=== PATIENT | female | born 1945 | race Caucasian/White ===

== ENCOUNTER → 2018-06-13 16:13 | Outpatient (CLI) | payer MEDICARE, OTHER, SELFPAY ==
--- NOTE | 2018-06-13 16:15 | DI.RAD.S_ITS ---
PROCEDURE: XR CHEST 2V INDICATIONS: cough TECHNIQUE: 2 views of the chest were acquired. COMPARISON: None. FINDINGS: Surgical changes and devices: None. Lungs and pleura: No pleural effusions or pneumothorax. There is prominence of the bilateral pulmonary vasculature. There is a 1.3 cm nodular opacity at the left lung base. Mediastinum: Mediastinal contours are normal. Heart size is normal. Bones and chest wall: No suspicious bony abnormalities. Soft tissues appear unremarkable. IMPRESSION: 1.3 cm nonspecific nodular opacity at the left lung base, with differential considerations including atelectasis, infection, or an irregular pulmonary nodule. Consider followup PA and lateral chest radiographs after the current clinical episode to ensure resolution. Dictated by: Reyes Nash M.D. on 06/13/2018 at 20:57 Approved by: Reyes Nash M.D. on 06/13/2018 at 21:02
== END ==
PROVIDERS: Visit Provider Physician Assistant
DX: R05 Cough (principal)
CPT/HCPCS: 71046

== ENCOUNTER → 2019-12-08 14:35 | Outpatient (CLI) | payer MEDICARE, OTHER, SELFPAY ==
--- NOTE | 2019-12-08 | DI.RAD.S_ITS ---
PROCEDURE: XR FOOT RT MIN 3V INDICATIONS: right foot pain after fall TECHNIQUE: 3 views of the foot were acquired. COMPARISON: None. FINDINGS: Bones: No fractures or dislocations. No suspicious bony lesions. Soft tissues: No tibiotalar joint effusion. Achilles tendon appears normal. IMPRESSION: No trauma found. Dictated by: Benedicto Smith M.D. on 12/08/2019 at 16:02 Approved by: Benedicto Smith M.D. on 12/08/2019 at 16:08
== END ==
PROVIDERS: PCP Internal Medicine; Referring Provider Student in an Organized Health Care Education/Training Program; Visit Provider Student in an Organized Health Care Education/Training Program
DX: M79.671 Pain in right foot (principal); W19.XXXA Unspecified fall, initial encounter
CPT/HCPCS: 73630

== ENCOUNTER → 2020-04-10 13:18 | Outpatient (CLI) | payer MEDICARE, OTHER, SELFPAY ==
[2020-04-11 10:27] LABS: COVID19 Sendout Not Detected (Not Detect)
== END ==
PROVIDERS: PCP Internal Medicine; Visit Provider Physician Assistant
DX: Z11.59 Encounter for screening for other viral diseases (principal)
CPT/HCPCS: 87635

== ENCOUNTER → 2020-09-08 18:57 | Outpatient (ROUT) | payer OTHER, SELFPAY | PROVIDERS: PCP Internal Medicine; Visit Provider Internal Medicine | DX: N39.0 Urinary tract infection, site not specified (principal) | CPT/HCPCS: 87077; 87086; 87186 ==

== ENCOUNTER → 2021-05-08 09:13 | Outpatient (CLI) | payer OTHER, SELFPAY ==
--- NOTE | 2021-05-08 | DI.US.S_ITS ---
PROCEDURE: US PELVIC COMPLETE INDICATIONS: 75-year-old female with postmenopausal bleeding TECHNIQUE: Real-time scanning was performed of the pelvic organs, with image documentation. Additional endovaginal scanning was necessary due to incomplete visualization of the adnexal and endometrial structures by transabdominal scanning. COMPARISON: None. FINDINGS: Uterus: Uterus is normal in size at 5.3 x 3.0 x 4.3 cm. The endometrium measures 15 mm in combined thickness. Myometrium is homogeneous, and the uterus is anteverted Ovaries: Right left ovaries measure 5.4 x 3.5 x 5.2 cm and 4.4 x 4.6 x 4.9 cm respectively. There is a multiloculated 4.9 x 4.2 cm cyst on the right as well as a 5.7 x 4.0 cm simple cyst on the left. Normal ovarian vascularity noted. Other: No pathologic free abdominal or pelvic fluid. IMPRESSION: 1. Thickened endometrium measures 15 mm. Recommend endometrial biopsy. 2. Multiloculated right ovarian cyst. Consider surgical consult. 3. Left ovarian 5.7 cm simple cyst Approved by: Satya Dhillon M.D. on 05/08/2021 at 10:50
== END ==
PROVIDERS: PCP Internal Medicine; Referring Provider Internal Medicine; Visit Provider Student in an Organized Health Care Education/Training Program
DX: N95.0 Postmenopausal bleeding (principal); R93.89 Abnormal findings on diagnostic imaging of other specified body structures; D39.11 Neoplasm of uncertain behavior of right ovary; N83.292 Other ovarian cyst, left side
CPT/HCPCS: 76830; 76856

== ENCOUNTER → 2021-05-29 15:03 | Outpatient (CLI) | payer OTHER, SELFPAY ==
[2021-05-29 16:28] LABS: Cancer Antigen 125 10.3 U/mL (0-35)
[2021-05-29 16:29] LABS: Estradiol, Total 20.9 pg/mL
[2021-05-31 11:13] LABS: Human Epididymis Prot 4 60.6 pmol/L (0.0-96.9)
== END ==
PROVIDERS: PCP Internal Medicine; Referring Provider Specialist; Visit Provider Specialist
DX: N83.202 Unspecified ovarian cyst, left side (principal); N83.201 Unspecified ovarian cyst, right side; R93.89 Abnormal findings on diagnostic imaging of other specified body structures
CPT/HCPCS: 36415; 82670; 86304; 86305

== ENCOUNTER → 2021-07-19 09:38 | Outpatient (CLI) | payer OTHER, SELFPAY ==
[2021-07-19 10:20] LABS: COVID19 -Nasal RAPID Negative (Negative)
== END ==
PROVIDERS: PCP Internal Medicine; Referring Provider Specialist; Visit Provider Specialist
DX: Z01.812 Encounter for preprocedural laboratory examination (principal); Z20.822 Contact with and (suspected) exposure to COVID-19
CPT/HCPCS: 87635

== ENCOUNTER 2021-07-20 08:41 | Day surgery (SDC) | payer OTHER, SELFPAY ==
[2021-07-19 08:33] VITALS: BMI 28.5
[2021-07-20] VITALS (19 sets, daily range): BP systolic 105–143; BP diastolic 55–79; PULSE 62–79; RESP 8–16; TEMP 36.4–37.2; O2SAT 90–98; BMI 28.5
--- NOTE | 2021-07-20 | PATH_ITS ---
Note [facility] Accession Number: [id number] TESTS RESULT FLAG UNITS REF RANGE LAB Clinician Provided Cytology Information No. of containers..01 Other (Miscellaneous) Source: PELVIC WASHINGS DIAGNOSIS: PELVIC WASHINGS NEGATIVE FOR MALIGNANT CELLS. THIS INTERPRETATION INCLUDES EVALUATION OF A CELL BLOCK. Pathologist ICD10: 01 N85.9 Signed out by: Elise Soni MD, Pathologist NPI- [id number] Performed by: Abiodun Joseph, Instructional Support Technician ([facility]) Gross description: 25 CC, PINK, HAZY RECEIVED: FRESH IN ORANGE CAP CONTAINER. /VDU 07/23/2021 0949 Local FLAG LEGEND: L-Low Normal,H-High Normal,LL-Alert Low,HH-Alert High <-Panic Low,>-Panic High,A-Abnormal,AA-Critical Abnormal Performed at: 01 =Z [facility] [address], [place] [address] Jalil Zarco MD, Performed at: 01 [facility] [address], [place], [place] [id number] MD Jalil Zarco MD Phone: [phone]
[2021-07-20] MEDS: LACTATED RINGERS 1,000 ML 100 ML IV ×2 (09:00→12:26)
--- NOTE | 2021-07-20 09:14 | PM.PREOP ---
Pre-operative Note COVID-19 COVID-19 status: Negative Result date/Date tested (Pos, Neg/Pending): 07/19/21 Criteria for continued procedure: Delay expected to result in less-positive ultimate med/surg outcome Interval Note History & Physical reviewed/Exam performed by Physician: Yes Changes to H&P: No
--- NOTE | 2021-07-20 11:32 | SUR.OPER ---
Lithotomy on padded OR bed, head on pillow, arms secured on padded arm boards at <90 degrees abduction. Legs secured in padded yellow fins stirrups.
[2021-07-20] MEDS: BUPIVACAINE 0.5% (PF) 30 ML, EPINEPHrine 0.15 MG INJ (12:10)
--- NOTE | 2021-07-20 12:45 | P.OP_ITS ---
Operative Date/Time/Diagnoses Date of procedure: 07/20/21 Time of procedure: 12:45 Pre-op diagnosis: Postmenopausal bleeding and bilateral ovarian cysts Post-op diagnosis: same Procedure & Clinicians Procedure: Laparoscopic BSO, hysteroscopy with resection of intracavitary mass and curettage Same procedure as scheduled: Yes Indications: Postmenopausal bleeding with thickened endometrium on ultrasound and bilateral ovarian cysts Surgeon: Cayla Anderson Click Yes if Unassisted: Yes Anesthesia Type: General Operative Notes Findings: Bilateral ovarian cysts with normal appearing tubes and uterus. Normal bowel surface. Some mild adhesions between the descending colon and the left ovarian cyst. Normal liver edge. Intracavitary uterine mass that appears to be a fibroid, resected Closure Type: primary Specimen(s): other (Bilateral ovaries and fallopian tubes, uterine intracavitary mass, endometrial curettage) Estimated Blood Loss (mL): 30 Blood products transfused: none Procedure in detail: Patient was brought to the operating room where she underwent general anesthesia. She was placed in low [facility] stirrups and prepped and draped in usual sterile fashion. Pulsatile stockings were in place and functional. Warming was with Viky Hugger. A single-tooth tenaculum was placed on the anterior lip of the cervix and the cervix dilated to #6 Hegar dilator. The Zumi uterine manipulator was placed and balloon inflated with 3 mL of air. The area of the incisions were injected with half percent Marcaine with epinephrine. An incision was made in the umbilicus with a scalpel and the Verres needle placed in the abdomen. Confirmation of correct placement of the needle was performed by withdrawing on the syringe and then allowing fluid to fall freely through the needle. The abdomen was insufflated to 4 L of CO2. A 5 mm trocar was placed under direct visualization. 2 other 5 mm trochars were placed in the right and left lower quadrant under direct visualization after incising the skin. There did not appear to be any damage with placement of the trocars. Cell washings were performed and sent to pathology. right fallopian tube was grasped and the infundibulopelvic ligament was cauterized with the PK generator. Sequential bites along the broad ligament were cauterized and cut. The fallopian tube at the junction with the uterus and the utero-ovarian ligament was cauterized and cut with the PK generator. Same procedure was performed on the left fallopian tube and ovary. A 10 mm trocar was placed suprapubically after injecting the skin with Marcaine with epi. An Endo-Catch bag was placed and the ovaries and tubes were placed in the bag. Ovaries and tubes were brought up out of the abdomen without spillage. Adequate hemostasis was noted. The CO2 was allowed to escape from the abdomen. The fascial layer of the 10 mm trocar site was sutured with 0 Vicryl suture. trochars were removed. Skin was closed with 4-0 monocryl. Next the procedure was switched to vaginal. A single-tooth tenaculum was replaced on the anterior lip of the cervix and the uterus dilated to #8 Hegar dilator. The hysteroscope was placed into the uterus with a sorbitol solution running and under constant suction. The resecting loop set at 80 W of cutting was used to resect the fibroid down to the level of the endometrium. A endometrial curettage was performed. The fibroid and the endometrial curettage was sent to pathology. The single-tooth tenaculum had torn through the cervix and the cervix was bleeding so an 0 Vicryl suture was used to repair the defect with adequate hemostasis noted. Patient went to recovery room in good condition counts of instruments and sponges were correct. The sorbitol solution I=O approximately 3000 mL. Complications: none Post-operative Condition: stable Disposition: same day surgery Plan for aftercare: Home when awake and stable. Further treatment based on biopsy results.
[2021-07-20] MEDS: fentaNYL 100 MCG/2 ML INJ IV (13:11)
[2021-07-20] MEDS: ACETAMINOPHEN 325 MG TABLET 650 MG PO (14:26)
[2021-07-20] MEDS: OXYCODONE IR 5 MG TABLET PO (14:28)
--- NOTE | 2021-07-20 14:30 | SUR.PHASEII ---
Addendum entered by Lyndsay Wilde R.N. 07/20/21 16:43: 1600-more awake and alert.still residual tired / sleepiness feeling but states feels better now. Taking cranberry juice and chocolate pudding. pain down to 3/10 and states tolerable. Home care instructions reviewed with patient. Copies to envelope for discharge. Questions answered. recalled/updated. Here in parking lot waiting. 1615-Up sitting bedside. Feels ready to progress to home. Dressing self. Assisted as needed with pants/shoes/socks. Sats improved and off oxygen after 1 hr+. 1625-Refused restroom. ? incontinence in bed from earlier noted. scant increase to peripad drainage noted-new one placed for discharge. 4 abdominal lap sites cdi. abdomen soft. 1630-IV out. ambulated around unit, gait generally steady with standby assist. denies nausea. 1635-Discharged by wheel chair with all belongings,paperwork and incentive spirometer. Able to reach 2, ooo ml if stays between lines on side of spirometer, if not can reach 4,ooo. good strong cough heard. stressed importance of using for next few days every 1-2 hours while awake, 10 /hr repetitions. Patient verbalizes understanding. Spoke with at car side, given information on spirometery, her instructions with times of next pain pills due if needed. Encouraged to escort patient in to house and may be sleepy tonight. Addendum entered by Lyndsay Wilde R.N. 07/20/21 14:42: 1440-resumed oxygen at 2l n c. sats 88%, enc to deep breathe, sats up to 92%. Dozing again. called and updated-aware eta could be another hour or so. Will call again when ready. Addendum entered by Lyndsay Wilde R.N. 07/20/21 14:37: 1430-continuous sat monitor on . oxygen off. on room air. continue to observe . Original Note: 07/20/2166-1830-Menusvyu report and assumed care of patient. groggy. c/o abdomen discomfort-5/10-cramping . oriented x 3. iv patent. abdomen soft with 4 large bandaids cdi. peripad intact with small amt bloody drainage. 1430-Dr Rene at bedside to see patient. po tylenol/oxycodone given. vss.
--- NOTE | 2021-07-20 15:07 | SUR.PHASEII ---
Pt given incentive spirometer and had her take deep breaths. Pt got up to 1000. Had her do this 5 times.
== END 2021-07-20 16:35 | disposition home or self-care (01) ==
LOC: OR 08:43
PROVIDERS: PCP Internal Medicine; Referring Provider Specialist; Visit Provider Specialist
PROC: 0UT24ZZ Resection of Bilateral Ovaries, Percutaneous Endoscopic Approach (ICD-10-PCS; CPT 58661; principal; 2021-07-20 09:45)
PROC: 0UDB8ZZ Extraction of Endometrium, Via Natural or Artificial Opening Endoscopic (ICD-10-PCS; CPT 58558; 2021-07-20 09:45)
DX: N85.9 Noninflammatory disorder of uterus, unspecified (principal); N83.202 Unspecified ovarian cyst, left side; N83.201 Unspecified ovarian cyst, right side; I10 Essential (primary) hypertension
CPT/HCPCS: 58661; 58561; J0171; J1100; J1885; J2405; J2704; J3010

== ENCOUNTER → 2021-11-07 10:24 | Outpatient (CLI) | payer OTHER, SELFPAY | PROVIDERS: PCP Internal Medicine; Visit Provider Nurse Practitioner Family | DX: N39.0 Urinary tract infection, site not specified (principal) | CPT/HCPCS: 87086 ==

== ENCOUNTER 2021-11-07 11:34 | Emergency (ER) | payer OTHER, SELFPAY ==
[2021-11-07 12:00] VITALS: BP 140/83; PULSE 69; RESP 18; TEMP 37.7; O2SAT 99
--- NOTE | 2021-11-07 12:24 | ED.FEMALEGU ---
HPI - Female Genitourinary <UDAY Carter - Last Filed: 11/07/21 14:21> General Chief complaint: Abdominal Pain Stated complaint: Abd pain- sent by [facility] Time Seen by Provider: 11/07/21 12:08 Source: patient Mode of arrival: Family Vehicle History of Present Illness HPI Narrative: This is a 76-year-old female who presents the emergency department after being sent over from the walk-in clinic for urinary frequency, dysuria, fever, and pelvic pressure for 3 days. Patient states that her pain is localized to her groin, she denies any abnormal vaginal discharge, she has a history of a bilateral oophorectomy and is currently on hormone replacement therapy. Patient denies any vaginal itching, denies any flank pain, states she has been more fatigued than usual, drinking a lot of water, and taking frequent naps. She states she took Aleve this morning at 1000 hours and is feeling better. Patient states she had diarrhea episode yesterday, denies any vomiting, denies any weakness or feeling faint. She denies any chest pain or shortness of breath. Patient denies having a history of UTIs in the past. On chart review it appears that patient had a positive urine culture for E coli on 09/08/2020 which was susceptible to all antibiotics. Patient denies having a racing heart, shortness of breath, or having pain out of proportion. Her primary care provider is Dr. Casanova, and Dr. Anderson performed her bilateral oophorectomy. Related Data Home Medications Medication Instructions Recorded Confirmed atenolol 25 mg tablet 25 mg PO QDAY #0 10/13/10 11/07/21 paroxetine HCl 10 mg tablet (Paxil) 10 mg PO Q DAY #0 10/13/10 11/07/21 Previous Rx's Medication Instructions Recorded estradiol-norethindrone acet 0.5 1 tab PO Q DAY #84 tab 09/07/21 mg-0.1 mg tablet cephalexin 500 mg capsule 500 mg PO BID 5 Days #10 cap 11/07/21 phenazopyridine 100 mg tablet 100 mg PO TID PRN #7 tab 11/07/21 (Pyridium) Allergies Allergy/AdvReac Type Severity Reaction Status Date / Time No Known Drug Allergies Allergy Verified 11/07/21 11:59 Review of Systems <UDAY Carter - Last Filed: 11/07/21 14:21> Review of Systems Narrative: General: endorses fever, chills and fatigue, denies weakness or lightheaded ness Head/Neck: denies headache, neck pain, dizziness Eyes: denies visual changes, eye pain Cardio: denies chest pain, palpitations, edema Respiratory: denies dyspnea, cough, orthopnea GI: denies abdominal pain, nausea, vomiting, or diarrhea, endorses pelvic pain and pressure sensation : endorses having dysuria and urgency without urinary retention, hematuria, frequency or incontinence MSK: denies joint pain, muscle weakness Skin: denies rash, itching, skin lesions or other Neuro: denies numbness, tingling Patient History <UDAY Carter - Last Filed: 11/07/21 14:21> Medical History Anxiety FH: breast cancer in first degree relative HTN (hypertension) Surgical History H/O bilateral breast reduction surgery Substance Use Type: does not use Exam <UDAY Carter - Last Filed: 11/07/21 14:21> Narrative Exam Narrative: Independently reviewed vitals signs and nursing notes. General: cooperative, comfortable, in no acute distress, well developed and well groomed, skin is flushed Head: atraumatic, symmetrical facial expressions, flushed cheeks, no diaphoresis Neck: supple, atraumatic, without lymphadenopathy. Eyes: pupils equal round and reactive, EOMI, conjunctiva normal Nose: nares patent, no rhinorrhea Mouth/Throat: uvula midline, moist mucus membranes Cardiovascular: regular rate and rhythm, no peripheral edema, warm extremities Respiratory: normal effort, able to speak in complete sentences, no audible wheezing, stridor, or rales. No retractions or tachypnea. GI: abdomen soft, nontender to palpation, nondistended, no masses, no exquisite tenderness with exam, without guarding or rebound. no CVA tenderness bilaterally MSK: moves all extremities, ambulatory w/steady gait, neurovascularly intact, no weakness Skin: brisk capillary refill, no rash, no erythema Neuro: normal speech and cognition, A&O x3, normal tone Psych: mental status is grossly normal, congruent mood, normal affect, pleasant and cooperative Initial Vital Signs Initial Vital Signs: Vital Signs Temperature 99.8 F H 11/07/21 12:00 Pulse Rate 69 11/07/21 12:00 Respiratory Rate 18 11/07/21 12:00 Blood Pressure 140/83 11/07/21 12:00 Pulse Oximetry 99 11/07/21 12:00 <Swathi Owen DO - Last Filed: 11/08/21 08:27> Initial Vital Signs Initial Vital Signs: Vital Signs Temperature 99.8 F H 11/07/21 12:00 Pulse Rate 69 11/07/21 12:00 Respiratory Rate 18 11/07/21 12:00 Blood Pressure 140/83 11/07/21 12:00 Pulse Oximetry 99 11/07/21 12:00 Course <ALMAS CarterP - Last Filed: 11/07/21 14:21> Orders Ordered: Discontinued Medications Acetaminophen (Acetaminophen 325 Mg Tablet) 975 mg PO NOW ONE Stop: 11/07/21 12:26 Last Admin: 11/07/21 12:38 Dose: 975 mg Documented by: [email or web address] Cephalexin HCl (Cephalexin 250 Mg Capsule) 500 mg PO NOW ONE Stop: 11/07/21 12:26 Last Admin: 11/07/21 12:39 Dose: 500 mg Documented by: VICTOR HUGO Phenazopyridine HCl (Phenazopyridine 100 Mg Tablet) 100 mg PO NOW ONE Stop: 11/07/21 12:26 Last Admin: 11/07/21 12:39 Dose: 100 mg Documented by: VICTOR HUGO Vital Signs Vital signs: Vital Signs - 8 hr 11/07/21 12:00 Temperature 99.8 F H Pulse Rate 69 Respiratory Rate 18 Blood Pressure 140/83 Pulse Oximetry 99 <Swathi Owen DO - Last Filed: 11/08/21 08:27> Orders Ordered: Discontinued Medications Acetaminophen (Acetaminophen 325 Mg Tablet) 975 mg PO NOW ONE Stop: 11/07/21 12:26 Last Admin: 11/07/21 12:38 Dose: 975 mg Documented by: FRANCISCOTE Cephalexin HCl (Cephalexin 250 Mg Capsule) 500 mg PO NOW ONE Stop: 11/07/21 12:26 Last Admin: 11/07/21 12:39 Dose: 500 mg Documented by: VICTOR HUGO Phenazopyridine HCl (Phenazopyridine 100 Mg Tablet) 100 mg PO NOW ONE Stop: 11/07/21 12:26 Last Admin: 11/07/21 12:39 Dose: 100 mg Documented by: VICTOR HUGO Vital Signs Vital signs: Vital Signs - 8 hr 11/07/21 12:00 Temperature 99.8 F H Pulse Rate 69 Respiratory Rate 18 Blood Pressure 140/83 Pulse Oximetry 99 MDM - Female Genitourinary <UDAY Carter - Last Filed: 11/07/21 14:21> Lab Data Result diagrams: 11/07/21 12:40 11/07/21 12:40 Labs: Lab Results 11/07/21 11/07/21 Range/Units 12:40 12:40 WBC 10.1 (4.5-11.0) X10^3/uL RBC 5.01 (4.0-5.2) X10^6/uL Hgb 13.8 (12.0-16.0) g/dL Hct 41.0 (36-46) % MCV 82.0 (80-100) fL MCH 27.5 (26-34) PG MCHC 33.6 (30-36) % RDW 15.0 H (11.6-14.8) % Plt Count 203 (150-400) X10^3/uL Neut % (Auto) 74.9 (50-75) % Lymph % (Auto) 15.9 L (25-40) % [place] % (Auto) 6.7 (3-14) % Eos % (Auto) 2.1 (2-4) % Baso % (Auto) 0.4 (0-2) % Neut # (Auto) 7600 H (8507-2186) /uL Lymph # (Auto) 1600 (5835-2680) /uL [place] # (Auto) 700 (0-900) /uL Eos # (Auto) 200 (0-450) /uL Baso # (Auto) 0 (0-100) /uL Sodium 137 (137-145) mmol/L Potassium 4.2 (3.4-5.1) mmol/L Chloride 106 (98-107) mmol/L Carbon Dioxide 26 (22-32) mmol/L BUN 11 (7-17) mg/dL Creatinine 0.73 (0.52-1.04) mg/dL Estimated GFR > 60 (>60) mL/min BUN/Creatinine Ratio 15.1 (6-22) Glucose 96 (80-110) mg/dL Calcium 9.2 (8.4-10.2) mg/dL Total Bilirubin 2.0 H (0.2-1.3) mg/dL AST 56 H (14-36) IU/L ALT 28 (<35) IU/L Alkaline Phosphatase 107 (38-126) U/L Total Protein 7.6 (6.3-8.2) g/dL Albumin 4.1 (3.5-5.0) g/dL Globulin 3.5 (1.7-4.1) g/dL Albumin/Globulin Ratio 1.2 (1.0-2.8) Lipase 80 (23-300) U/L MDM Narrative Medical decision making narrative: This is a 76-year-old female who presents to the emergency department after being sent over from the walk-in clinic for her fever, dysuria, pelvic pressure and urinary symptom she has been having for the last 4 days. She states that her fever at home has been low-grade, she has been fatigued and slept more than usual over the last 2 days. She states that her pelvic pressure and pain became more severe this morning, and she felt poorly so she went to the walk-in clinic. She states they tested her urine there, and did not find any abnormalities, and sent her to the emergency department for evaluation. Patient's WBC is 10.1, with a mild left shift, electrolytes are within normal range, total bilirubin is elevated without any priors to compare to, lipase is 80, urine shows leukocyte esterase, urobilinogen.. Urine was sent for culture. On chart review, prior urine culture grew E coli with full susceptibility, today she was given Keflex, Pyridium, Tylenol for her low-grade temperature, and she states that she started feeling better. Patient took naproxen at 1000 hours. She drinks 2 cups of water here, had a cups of water prior to arrival. Patient denies any altered mentation, states that she feels well enough to go home and take care of herself, her case was discussed with the covering physician, she did not meet sepsis criteria, is tolerating p.o., did not have any nausea, vomiting, or pain, she improved after Tylenol and Pyridium were given. She was given strict return precautions for the next 24 hours to return for any worsening, she understands to take her Keflex twice a day for the next 5 days. She was encouraged to schedule follow-up appointment with for a recheck. No peritoneal signs on abdominal exam. Patient remains p.o. tolerant. Serial abdominal exam without increase in abdominal pain. Given history and exam, low suspicion for acute abdominal process, such as acute cholecystitis, pancreatitis, perforated viscus, atypical appendicitis, colitis, diverticulitis or torsion. Extensive conversation about ER return precautions and need for close follow-up. Patient is appropriate and amenable to discharge home. Vital signs are stable on repeat examination is unremarkable. Patient has been informed of results. Patient has been given strict return to ER precautions for any new or worsening symptoms. Patient understands to follow up closely with outpatient providers as instructed. Patient understands plan and agrees to discharge home. All questions and concerns answered at this time. <Swathi Owen, - Last Filed: 11/08/21 08:27> Lab Data Labs: Lab Results 11/07/21 11/07/21 Range/Units 12:40 12:40 WBC 10.1 (4.5-11.0) X10^3/uL RBC 5.01 (4.0-5.2) X10^6/uL Hgb 13.8 (12.0-16.0) g/dL Hct 41.0 (36-46) % MCV 82.0 (80-100) fL MCH 27.5 (26-34) PG MCHC 33.6 (30-36) % RDW 15.0 H (11.6-14.8) % Plt Count 203 (150-400) X10^3/uL Neut % (Auto) 74.9 (50-75) % Lymph % (Auto) 15.9 L (25-40) % [place] % (Auto) 6.7 (3-14) % Eos % (Auto) 2.1 (2-4) % Baso % (Auto) 0.4 (0-2) % Neut # (Auto) 7600 H (5707-4264) /uL Lymph # (Auto) 1600 (8093-4050) /uL [place] # (Auto) 700 (0-900) /uL Eos # (Auto) 200 (0-450) /uL Baso # (Auto) 0 (0-100) /uL Sodium 137 (137-145) mmol/L Potassium 4.2 (3.4-5.1) mmol/L Chloride 106 (98-107) mmol/L Carbon Dioxide 26 (22-32) mmol/L BUN 11 (7-17) mg/dL Creatinine 0.73 (0.52-1.04) mg/dL Estimated GFR > 60 (>60) mL/min BUN/Creatinine Ratio 15.1 (6-22) Glucose 96 (80-110) mg/dL Calcium 9.2 (8.4-10.2) mg/dL Total Bilirubin 2.0 H (0.2-1.3) mg/dL AST 56 H (14-36) IU/L ALT 28 (<35) IU/L Alkaline Phosphatase 107 (38-126) U/L Total Protein 7.6 (6.3-8.2) g/dL Albumin 4.1 (3.5-5.0) g/dL Globulin 3.5 (1.7-4.1) g/dL Albumin/Globulin Ratio 1.2 (1.0-2.8) Lipase 80 (23-300) U/L Discharge Plan Departure Patient Disposition: Home Clinical Impression: Complicated urinary tract infection Instructions: DI for Kidney Infection, DI for Urinary Tract Infection (UTI) Activity Restrictions/Additional Instructions: *You have been diagnosed with a complicated bladder infection. Please take these antibiotics for the next 5 days twice a day, you can take the Pyridium 3 to 4 times a day as needed for your pelvic pain, this will reduce spasm. Please stay hydrated, drink plenty of fluids, continue to take naproxen every 12 hours with food and water, and take Tylenol 650 mg every 6 hours as needed for fever and pain. Your given a dose around noon in the emergency department today. If you feel any worse, have vomiting, or chills, please return to the emergency department. Thank you for trusting us with your care, I hope you start feeling better soon, please return if you have any worsening of your symptoms or start vomiting. I wish you the best. *What to do: *Please continue to take your regular medications as directed. [x ] New medication prescriptions sent to your pharmacy: [ ] [ ] New medication written as a paper prescription [ ] No new medications given *Please follow up with your primary care provider in 2-3 days, call for an appointment. Let them know you were seen in the Emergency Department and that we asked that you be seen for follow-up. We will electronically transmit a record of today's note if your PCP is in our system *If you do not have a primary care provider please contact [phone] to establish care with one of the [facility] primary care providers. *Return to Emergency Department if you should have any new, worsening or concerning symptoms, such as [fever greater than 101F, chills, worsening pain, persistent vomiting or other bothersome symptoms] Prescriptions: New cephalexin 500 mg capsule 500 mg PO BID 5 Days Qty: 10 0RF phenazopyridine [Pyridium] 100 mg tablet 100 mg PO TID PRN (Reason: pain) Qty: 7 0RF No Action paroxetine HCl [Paxil] 10 MG tablet 10 mg PO Q DAY Qty: 0 0RF atenolol 25 MG tablet 25 mg PO QDAY Qty: 0 0RF estradiol-norethindrone acet 0.5-0.1 mg tablet 1 tab PO Q DAY Qty: 84 3RF Referrals: Zeb Casanova MD [Primary Care Provider] - <Swathi Owen DO - Last Filed: 11/08/21 08:27> [facility] ED Attending Raul Attestation: I was immediately available in the department for consultation. Documentation has been reviewed. I agree with assessment and plan.
[2021-11-07] MEDS: ACETAMINOPHEN 325 MG TABLET 975 MG PO (12:38)
[2021-11-07] MEDS: cephALEXin 250 MG CAPSULE 500 MG PO (12:39)
[2021-11-07] MEDS: PHENAZOPYRIDINE 100 MG TABLET PO (12:39)
[2021-11-07 13:00] LABS: Add Manual Diff / Slide Review NO; Basophils Absolute Auto 0 /uL (0-100); Basophils Percent Auto 0.4 % (0-2); Eosinophils Absolute Auto 200 /uL (0-450); Eosinophils Percent Auto 2.1 % (2-4); Hemoglobin 13.8 g/dL (12.0-16.0); Lymphocytes Absolute Auto 1600 /uL (1100-4500); Lymphocytes Percent Auto 15.9 % (25-40); Mean Corpuscular HGB Conc 33.6 % (30-36); Mean Corpuscular Hemoglobin 27.5 PG (26-34); Monocytes Absolute Auto 700 /uL (0-900); Monocytes Percent Auto 6.7 % (3-14); Neutrophils Absolute Auto 7600 /uL (1500-7000); Neutrophils Percent Auto 74.9 % (50-75); Platelet Count 203 X10^3/uL (150-400); Red Blood Cell Count 5.01 X10^6/uL (4.0-5.2); White Blood Cell Count 10.1 X10^3/uL (4.5-11.0)
[2021-11-07 13:12] LABS: Alanine Aminotransferase 28 IU/L (<35); Albumin 4.1 g/dL (3.5-5.0); Albumin Globulin Ratio 1.2 (1.0-2.8); Alkaline Phosphatase 107 U/L (38-126); Aspartate Aminotransferase 56 IU/L (14-36); BUN Creatinine Ratio 15.1 (6-22); Blood Urea Nitrogen 11 mg/dL (7-17); Calcium 9.2 mg/dL (8.4-10.2); Carbon Dioxide 26 mmol/L (22-32); Chloride 106 mmol/L (98-107); Estimated Glomerular Filt Rate > 60 mL/min (>60); Globulin 3.5 g/dL (1.7-4.1); Glucose 96 mg/dL (80-110); HEMOLYSIS 36 (0-50); Lipase 80 U/L (23-300); Potassium 4.2 mmol/L (3.4-5.1); Sodium 137 mmol/L (137-145); Total Protein 7.6 g/dL (6.3-8.2)
== END 2021-11-07 13:35 | disposition home or self-care (01) ==
PROVIDERS: Emergency Medicine; Emergency Provider Nurse Practitioner Critical Care Medicine; PCP Internal Medicine
DX: N39.0 Urinary tract infection, site not specified (principal); R50.9 Fever, unspecified; R10.2 Pelvic and perineal pain
CPT/HCPCS: 36415; 80053; 83690; 85025; 87086; 99283

== ENCOUNTER → 2022-04-24 12:07 | Outpatient (CLI) | payer OTHER, SELFPAY ==
--- NOTE | 2022-04-24 12:08 | DI.US.S_ITS ---
ULTRASOUND OF RIGHT BREAST: 04/24/2022 CLINICAL: Residual lump 14 months post severe right breast trauma. Comparison is made to exams dated: 04/24/2022 mammogram - [facility], 07/05/2019 mammogram, 05/06/2017 mammogram, and 04/13/2015 mammogram - [facility]. Color flow ultrasound of the right breast was performed on the areas of interest. Jacobo scale images of the real-time examination were reviewed. There is a mass in the right breast at 2 o'clock middle depth. This mass is hypoechoic with posterior acoustic shadowing. The right axilla was interogated and normal appearing lymph nodes are visualized. IMPRESSION: SUSPICIOUS OF MALIGNANCY The mass in the right breast is at a moderate suspicion for malignancy. An ultrasound guided biopsy is recommended. No right axillary adenopathy. This exam was interpreted at Station ID: [id number]. SUMMARY: This was discussed with the patient by the radiologist Dr. Montano at the time of the exam. Electronically Signed By: Dayanara sam/:04/24/2022 14:16:09 letter sent: Biopsy Required Ultrasound BI-RADS: 4b Moderate suspicion of malignancy
--- NOTE | 2022-04-24 12:08 | DI.MG.S_ITS ---
BILATERAL DIGITAL DIAGNOSTIC MAMMOGRAM 3D/2D: 04/24/2022 CLINICAL: Right breast injury. Comparison is made to exams dated: 07/05/2019 mammogram, 05/06/2017 mammogram, and 04/13/2015 mammogram - [facility]. There are scattered areas of fibroglandular density in both breasts (category b / 25%-50% glandular tissue). There is architectural distortion in the right breast at 12 o'clock middle depth. This correlates as palpated. No other significant masses, calcifications, or other findings are seen in either breast. IMPRESSION: INCOMPLETE: NEEDS ADDITIONAL IMAGING EVALUATION The architectural distortion in the right breast is indeterminate. A targeted ultrasound of the right breast is recommended and will be performed immediately following this exam. Based on the Tyrer Cuzick model (a risk assessment model) the patient's lifetime risk is 6.1% and her 10 year risk is 6.1%. According to the ACR, ACS, and NCCN guidelines, an annual breast MRI exam along with mammogram is recommended if the patient's lifetime risk is 20% or greater. This exam was interpreted at Station ID: [id number]. NOTE: For mammograms, a report in lay terms will be sent to the patient. Approximately 15% of breast malignancies will not be visualized mammographically. In the management of a palpable breast mass, a negative mammogram must not discourage biopsy of a clinically suspicious lesion. Electronically Signed By: Dayanara Jeter M.D. lk/:04/24/2022 12:48:04 ACR BI-RADS Category 0: Incomplete [id number]
== END ==
PROVIDERS: PCP Internal Medicine; Referring Provider Internal Medicine; Visit Provider Internal Medicine
DX: R92.8 Other abnormal and inconclusive findings on diagnostic imaging of breast (principal); N63.12 Unspecified lump in the right breast, upper inner quadrant; S29.9XXA Unspecified injury of thorax, initial encounter; Z87.828 Personal history of other (healed) physical injury and trauma
CPT/HCPCS: 76642; 77066; G0279

== ENCOUNTER → 2022-04-24 14:08 | Outpatient (CLI) | payer OTHER, SELFPAY ==
[2022-04-24 16:03] LABS: Alanine Aminotransferase 22 IU/L (<35); Albumin 4.4 g/dL (3.5-5.0); Albumin Globulin Ratio 1.3 (1.0-2.8); Alkaline Phosphatase 116 U/L (38-126); Aspartate Aminotransferase 42 IU/L (14-36); Bilirubin Total 1.4 mg/dL (0.2-1.3); Blood Urea Nitrogen 15 mg/dL (7-17); Calcium 9.3 mg/dL (8.4-10.2); Carbon Dioxide 28 mmol/L (22-32); Chloride 104 mmol/L (98-107); Cholesterol 173 mg/dL (140-199); Estimated Glomerular Filt Rate > 60 mL/min (>60); Globulin 3.5 g/dL (1.7-4.1); Glucose 77 mg/dL (80-110); HDL Cholesterol 74 mg/dL (40-60); HEMOLYSIS < 15 (0-50); LDL Cholesterol Calculated 83 mg/dL (<100); Potassium 4.3 mmol/L (3.4-5.1); Sodium 139 mmol/L (137-145); Total Protein 7.9 g/dL (6.3-8.2); Triglycerides 80 mg/dL (35-150)
[2022-04-24 16:09] LABS: Hemoglobin A1C% w Est Avg Glu 5.2 % (4.0-6.0)
[2022-04-24 16:30] LABS: TSH w/ Reflex to FT4 2.76 uIU/mL (0.47-4.68)
== END ==
PROVIDERS: PCP Internal Medicine; Referring Provider Internal Medicine; Visit Provider Internal Medicine
DX: R73.01 Impaired fasting glucose (principal); I10 Essential (primary) hypertension; E78.2 Mixed hyperlipidemia
CPT/HCPCS: 36415; 80053; 80061; 83036; 84443

== ENCOUNTER → 2022-05-14 08:59 | Outpatient (CLI) | payer OTHER, SELFPAY ==
--- NOTE | 2022-05-14 | DI.MG.S_ITS ---
UNILATERAL RIGHT DIGITAL DIAGNOSTIC MAMMOGRAM 3D/2D POST-EXCISIONAL BIOPSY: 05/14/2022 CLINICAL: Right breast post clip. Comparison is made to exams dated: 04/24/2022 mammogram - [facility], 07/05/2019 mammogram, and 05/06/2017 mammogram - [facility]. There are scattered areas of fibroglandular density in the right breast (category b / 25%-50% glandular tissue). There is a biopsy marker in the right breast at the biopsy site. IMPRESSION: POST PROCEDURE MAMMOGRAM FOR MARKER PLACEMENT Biopsy marker at the biopsy site. This exam was interpreted at Station ID: [id number]. NOTE: For mammograms, a report in lay terms will be sent to the patient. Approximately 15% of breast malignancies will not be visualized mammographically. In the management of a palpable breast mass, a negative mammogram must not discourage biopsy of a clinically suspicious lesion. Electronically Signed By: Rajwinder Pereyra M.D. fx/:05/14/2022 10:40:18 ACR BI-RADS Category Post-procedure mammogram for marker placement
--- NOTE | 2022-05-14 | DI.US.S_ITS ---
ULTRASOUND GUIDED BIOPSY RIGHT BREAST USING VACUUM DEVICE WITH POST MAMMOGRAPHIC AND ULTRASOUND IMAGIN05/14/2022 CLINICAL: Right breast mass. PATIENT CONSENT: Risks (minor bleeding, infection, vasovagal reaction and repeat procedure), benefits and alternatives were explained to the patient and written informed consent was obtained. Correlation is made to exams dated: 04/24/2022 ultrasound, 04/24/2022 mammogram - [facility], 07/05/2019 mammogram, 05/06/2017 mammogram, and 04/13/2015 mammogram - [facility]. An ultrasound guided biopsy using real-time ultrasound was performed for the irregular shaped mass located in the right breast at 1 o'clock posterior depth. This was described on the previous ultrasound report. The skin was prepped in the usual manner. Local anesthetic was administered to the access site. The abnormality was approached from the lateral aspect. A 13 gauge biopsy needle was placed adjacent to the abnormality under ultrasound guidance. Once the needle was documented to be in the correct location, five specimens were obtained using the Mammotome biopsy system. Post procedure mammographic and ultrasound imaging demonstrates the clip at the targeted area. The specimens were sent to the laboratory for pathological analysis. IMPRESSION: ULTRASOUND GUIDED BIOPSY HIGH RISK BENIGN Ultrasound guided biopsy of the mass in the right breast posterior depth was successful. Pathology indicates focus of high risk benign atypical lobular hyperplasia (ALH), background breast parenchyma with dense stromal fibrosis and focal pseudoangiomatous stromal hyperplasia, focal fat necrosis. Pathology results are concordant with imaging findings. A surgical consultation is recommended. This exam was interpreted at Station ID: [id number]. Rajwinder Montano M.D. fx,aty/:05/21/2022 19:01:12
--- NOTE | 2022-05-14 | PATH_ITS ---
[facility] Accession Number: [id number] . 01 Material submitted: . breast - RIGHT BREAST 1:00 8CMFN MASS . 01 Diagnosis: A. Right Breast Mass, 1 o'clock, 8 cm from the Nipple, Needle Core Biopsy: A rare focus of atypical lobular hyperplasia (0.5 mm). Background breast parenchyma with dense stromal fibrosis and focal pseudoangiomatous stromal hyperplasia-like features. Focal fat necrosis with evidence of prior hemorrhage. Background breast with microcysts, columnar cell change/columnar cell hyperplasia, and focal usual ductal hyperplasia. Negative for ductal carcinoma in situ and malignancy. . COMMENT: Clinico-radiographic correlation is necessary. MRV 05/21/2022 1331 Local . 01 Electronically signed: . Tana Gilbert MD, Pathologist NPI- [id number] . 01 Gross description: . Received one formalin-filled container, labeled with the patient's name and RT breast 1 o'clock 8 cm FN. The specimen is received with a plastic filter in container, sample loose in container and consists of multiple yellow-gallegos soft portions of tissue which range in size from 0.2 x 0.2 x 0.2 cm to 1.2 x 0.3 x 0.3 cm. The specimen is entirely submitted in one cassette. Possible collection date and time per requisition: 05/14/22 at 10:06. Total fixation time: Approximately 17 hours. (DC:[id number]) /DEANDRA 05/15/2022 0228 Local . 01 Microscopic: . A rare focus (0.5 mm) of atypical proliferation is noted, raising consideration for lobular neoplasia, and is evaluated with e-cadherin and beta-catenin immunostains, with appropriately staining external controls. The area of interest demonstrates a loss of e-cadherin and beta-catenin, in support of focal atypical lobular hyperplasia. . * This test was developed and its performance characteristics determined by [facility]. It has not been cleared or approved by the U.S. Food and Drug Administration. The FDA has determined that such clearance or approval is not necessary. This test is used for clinical purposes. It should not be regarded as investigational or for research. . 01 Pathologist provided ICD-10: R92.8, D05.01 . 01 CPT . 087414, X98716, U32644 Specimen Comment: A courtesy copy of this report has been sent to [phone] Specimen Comment: [id number] Performed at: 01 [facility] [address] [place] [address], [place], [place] [id number] MD Jalil Zarco MD Phone: [phone]
== END ==
PROVIDERS: PCP Internal Medicine; Referring Provider Internal Medicine; Visit Provider Internal Medicine
DX: N60.91 Unspecified benign mammary dysplasia of right breast (principal); N64.1 Fat necrosis of breast; N60.31 Fibrosclerosis of right breast
CPT/HCPCS: 19083; 77065

== ENCOUNTER → 2022-07-02 08:04 | Outpatient (CLI) | payer OTHER, SELFPAY ==
--- NOTE | 2022-07-02 | DI.MG.S_ITS ---
UNILATERAL RIGHT DIGITAL DIAGNOSTIC MAMMOGRAM 3D/2D: 07/02/2022 CLINICAL: Pre op wire localization with ultrasound. Comparison is made to exams dated: 05/14/2022 mammogram, 04/24/2022 mammogram - [facility], and 07/05/2019 mammogram - [facility]. There are scattered areas of fibroglandular density in the right breast (category b / 25%-50% glandular tissue). Post ultrasound guided wire localization of the right breast was performed with both CC and LM views. Localization wire tip projects approximately 4.5 cm superior, 5cm posterior from the geometric center of the biopsy marker. No significant masses, calcifications, or other findings are seen in the breast. IMPRESSION: Post ultrasound guided wire localization for mass in the right breast 2 o'clock middle depth with migration of the distal tip beyond the geometric center of the targeted area. Details as above. Findings were discussed with at 1020 hrs on 07/02/2022. Surgical specimen demonstrated presence of localization wire, lesion, and biopsy marker. This exam was interpreted at Station ID: [id number]. NOTE: For mammograms, a report in lay terms will be sent to the patient. Approximately 15% of breast malignancies will not be visualized mammographically. In the management of a palpable breast mass, a negative mammogram must not discourage biopsy of a clinically suspicious lesion. Electronically Signed By: Reji Montano M.D. aty/:07/18/2022 13:27:58 ACR BI-RADS Category n/a
--- NOTE | 2022-07-02 | DI.MG.S_ITS ---
SPECIMEN RIGHT BREAST: 07/02/2022 CLINICAL: Right breast specimen. Correlation is made to exams dated: 07/02/2022 mammogram, 05/14/2022 mammogram, and 04/24/2022 mammogram - [facility]. A surgical specimen was imaged for the indistinct mass located in the right breast at 2 o'clock middle depth. This was described on the previous mammography and ultrasound reports. IMPRESSION: SPECIMEN The imaged specimen includes the lesion, a biopsy clip, and the distal portion of the localization wire. The specimen shows characteristics of the findings. Findings were discussed telephonically with Dr. Perez at 1138 hrs. This exam was interpreted at Station ID: [id number]. Reji Montano M.D. aty/:07/02/2022 12:03:30
--- NOTE | 2022-07-02 08:05 | DI.US.S_ITS ---
ULTRASOUND GUIDED WIRE LOCALIZATION RIGHT BREAST WITH POST MAMMOGRAPHIC IMAGIN07/02/2022 CLINICAL: Pre-op wire localization with ultrasound guidance. Correlation is made to exams dated: 05/14/2022 ultrasound biopsy, 05/14/2022 mammogram, 04/24/2022 ultrasound, 04/24/2022 mammogram - [facility], and 07/05/2019 mammogram - [facility]. A wire localization using ultrasound guidance was performed for the indistinct irregular shaped mass located in the right breast at 2 o'clock middle depth. This was described on the previous mammography and ultrasound reports. The skin was prepped in the usual manner. Local anesthetic was administered to the access site. The localization was approached from the lateral aspect. A wire was inserted into the targeted area under ultrasound guidance. Sonographic images demonstrate position of tip of localization needle at the posterior/deep margin of the mass with confirmation on post needle removal images. However, post placement mammographic imaging demonstrates the tip projects approximately 4.5cm superior, 5cm posterior from the geometric center of the biopsy marker. IMPRESSION: WIRE LOCALIZATION Wire localization for the mass in the right breast at 2 o'clock middle depth was successful with migration of distal tip of localization wire beyond the geometric center of the targeted area. A surgical excision is recommended and scheduled to immediately follow this exam. The location of the wire and relationship of the distal tip, thick section of wire to the center of the mass and location of the biopsy marker was discussed in person with Dr. Perez at 1020 hrs. This exam was interpreted at Station ID: [id number]. Reji Montano M.D. aty/:07/02/2022 12:25:11
== END ==
PROVIDERS: PCP Internal Medicine; Referring Provider Surgery; Visit Provider Surgery
DX: N60.91 Unspecified benign mammary dysplasia of right breast; N63.12 Unspecified lump in the right breast, upper inner quadrant
CPT/HCPCS: 19285; 76098; 77065; C1819

== ENCOUNTER 2022-07-02 09:09 | Day surgery (SDC) | payer MEDICARE, OTHER, SELFPAY ==
[2022-06-28 09:27] VITALS: BMI 27.6
[2022-07-02] VITALS (10 sets, daily range): BP systolic 99–137; BP diastolic 66–88; PULSE 58–71; RESP 10–18; TEMP 36.1–36.8; O2SAT 91–99; BMI 27.0
--- NOTE | 2022-07-02 | PATH_ITS ---
[facility] Accession Number: [id number] No. of containers..01 Tissue . 01 Material submitted: . breast - RIGHT BREAST TISSUE . 01 Clinical history: . ANTERIOR GREEN, INFERIOR BLUE, LATERAL ORANGE MEDIAL YELLOW, POSTERIOR BLACK AND SUPERIOR RED . 01 Diagnosis: Right Breast Tissue, Lumpectomy: Rare, minute focus of atypical lobular hyperplasia. Background previous biopsy changes, dense stromal fibrosis, focal pseudoangiomatous stromal hyperplasia, cystic fat necrosis with evidence of prior hemorrhage (secondary to possible trauma) and columnar cell changes also present. Negative for in situ or invasive carcinoma. See comment. MRV 07/04/2022 1617 Local . 01 Comment: The rare focus of atypical lobular hyperplasia is located 3 mm from the closest inked inferior blue margin. . Remaining margins are unremarkable. . As part of ongoing personnel quality assurance auditor, event sales representative slides (A4 and A8) have also been reviewed by Dr. Tami Guevara, who agrees with the interpretation. . 01 Electronically signed: . Gayatri Pastor MD, Pathologist NPI- [id number] . 01 Gross description: . Received: In formalin, labeled with the patient's name, , and right breast tissue. Specimen: Oriented right lumpectomy. Weight: 42 grams. Measurement: 6.4 cm anterior to posterior, 5.0 cm medial to lateral, and 3.2 cm superior to inferior. Skin ellipse: Absent. Wire: Present, penetrating anterior and exiting laterally. Margins: Inked by the surgeon as follows: Anterior green, inferior blue, lateral orange, medial yellow, posterior black, and superior red (ink is reinforced at the bench). Sliced: From anterior to posterior into nine 3 mm slices. Lesions: One. Lesion #1: Description: Ill defined, mottled white to yellow-orange firm lesion. Size: 4.2 x 2.8 x 2.7 cm. Slices involved: Slices 1 through 8. Biopsy site: Possible hemorrhagic biopsy site changes are identified in slices 3 through 5, but no clip is identified. Distance to margins: Grossly adjacent to the blue margin, 0.3 cm from the yellow margin, 0.3 cm from the green margin, 0.4 cm from the red margin, greater than 1.0 from all remaining margins. Other: The remaining cut surfaces are yellow to white fibroadipose tissue with fibrous tissue occupying less than 10% of the cut surface. No additional lesions are identified. Fixation time: The specimen was removed on 07/01/2022, time out and time in formalin not provided. Cold ischemic time cannot be calculated. Total fixation time is approximately 36 hours. Stretcher And Drier sections are submitted as follows: A1: Rep slice 1, green margin perpendicular with closest lesion. A2-A3: Composite slice 2 to include blue, green, yellow and orange margins. A4-A5: Composite slice 4 to include blue, red, yellow, and orange margins. A6-A7: Composite slice 5 to include nearest yellow, red, and blue margins as well as the orange margin. A8: Rep slice 6 to include red and blue margins. A9: Rep slice 8 to include red, yellow and blue margins. A10: Rep slice 9, block margin perpendicular (no lesion seen). (AG:[id number]) /MRV 07/03/2022 1334 Local . 01 Pathologist provided ICD-10: N60.99 . 01 CPT . 976435 Specimen Comment: A courtesy copy of this report has been sent to [facility] Performed at: 01 [facility] [address] [place] [address], [place], [place] [id number] MD Jalil Zarco MD Phone: [phone]
[2022-07-02 09:03] LABS: COVID19 -Nasal RAPID Negative (Negative)
--- NOTE | 2022-07-02 09:04 | SUR.PREOP ---
Pt to DI.
--- NOTE | 2022-07-02 09:50 | PM.PREOP ---
Pre-operative Note COVID-19 COVID-19 status: Negative Interval Note History & Physical reviewed/Exam performed by Physician: Yes Changes to H&P: No
[2022-07-02] MEDS: LACTATED RINGERS 1,000 ML 120 ML IV (10:11)
[2022-07-02] MEDS: CEFAZOLIN 2 GM/100 ML PREMIX 100 ML IV (10:44)
[2022-07-02] MEDS: BUPIVACAINE 0.5% W/ EPI (PF) 30 ML VIAL INJ (10:56)
--- NOTE | 2022-07-02 11:03 | SUR.OPER ---
Supine on padded OR bed, head on gel head dish, arms secured on padded arm boards at <90 degrees abduction, legs uncrossed pillow under knees, safety belt at thigh, tape over blanket over lower legs.
[2022-07-02] MEDS: HYDROMORPHONE 2 MG INJ IV (12:06)
[2022-07-02] MEDS: ONDANSETRON 4 MG/2 ML INJ IV (12:34)
[2022-07-02] MEDS: OXYCODONE IR 5 MG TABLET PO ×2 (12:34→13:09)
[2022-07-02] MEDS: BENZOCAINE/MENTHOL 1 LOZ PKT 1 EACH PO (13:46)
--- NOTE | 2022-07-02 13:47 | SUR.PHASEII ---
Patient c/o sore throat. Dr. Joseph notified and throat lozenge ordered, given.
--- NOTE | 2022-07-09 12:19 | PM.OP.1 ---
Operative Date/Time/Diagnoses Date of procedure: 07/02/22 Pre-op diagnosis: Atypical lobular hyperplasia on biopsy Post-op diagnosis: same Procedure & Clinicians Procedure: Wire localization and excisional right breast biopsy Same procedure as scheduled: Yes Indications: Finding of atypical lobular hyperplasia after breast biopsy prompted by radiologic finding on routine mammogram. Surgeon: Luh Perez Click Yes if Unassisted: Yes Anesthesia Type: General Operative Notes Findings: A wire localization technique has been used. The wire unfortunately has advanced well beyond the area of the biopsy and the tip of the wire is 5 cm away from the target. The wire does seem to traverse through the area of interest. There is a palpable mass that is nearby where the radiologic findings and biopsy were done. Specimen(s): other (Right breast biopsy with all margins marked and inked) Procedure in detail: Patient was taken to the operating room and placed supine on the operating room table bilateral SCDs were in place preoperative antibiotics were administered. A LMA anesthesia was attempted, there was some difficulties establishing an airway with this Dr. Anish Joseph came in for assistance. Ultimately it was decided that an ET tube would be preferred and Dr. Joseph placed this. Dr. Mcghee then continued with the case and there were no other issues. The right breast was prepped and draped in the usual sterile fashion arms were extended. Local anesthesia was infused over the area where the incision would be made. Curvilinear incision was made along Nataly's line, and around this incision skin flaps were lifted in all directions. A cuboidal shape of tissue was then carved out using electrocautery and aiming for a midpoint in the wire. The specimen was removed with Metzenbaum scissors for the posterior portion and marked on all 6 sides with different colors of ink. The wire marker came out with the specimen. The palpable mass also came out with the specimen. It was sent for radiography and biopsy marker was seen within the specimen. The specimen cavity was irrigated and inspected for hemostasis electrocautery was used to ensure that the whole cavity was dry. Next a few 3-0 Vicryl sutures were used to close the defect, and the skin was closed with a running Monocryl suture and dressed with Steri-Strips. The patient tolerated the procedure well and went in good condition to the postoperative care unit EBL was minimal and no surgical complications.
== END 2022-07-02 15:45 | disposition home or self-care (01) ==
PROVIDERS: PCP Internal Medicine; Referring Provider Surgery; Visit Provider Surgery
PROC: (CPT 19125; principal; 2022-07-02 10:30)
DX: N60.91 Unspecified benign mammary dysplasia of right breast (principal); Z20.822 Contact with and (suspected) exposure to COVID-19
CPT/HCPCS: 19125; 19285; 76098; 77065; 87635; C1819; J0690; J1170; J2405; J2704; J3010

== ENCOUNTER 2022-08-30 07:00 | Day surgery (SDC) | payer MEDICARE, SELFPAY ==
[2022-08-30] VITALS (7 sets, daily range): BP systolic 121–144; BP diastolic 67–88; PULSE 60–71; RESP 12–18; TEMP 36.2–37; O2SAT 95–97; BMI 27.4
--- NOTE | 2022-08-30 | PATH_ITS ---
[facility] Accession Number: [id number] No. of containers..01 Tissue . 01 Material submitted: . cecum - CECAL POLYP X 3 . 01 Diagnosis: Cecum, Polyp x3, Biopsy: Fragments of tubulovillous adenoma, sessile serrated adenoma, and benign lymphoid aggregate. No evidence of malignancy or high-grade dysplasia. MRV 09/04/2022 1421 Local . 01 Electronically signed: . Linda Warren MD, Pathologist NPI- [id number] . 01 Gross description: . CECAL POLYP X 3: Received in formalin are multiple fragment(s) of gallegos, soft tissue measuring 1.0 x 0.6 x 0.1 cm in aggregate submitted entirely in 1 cassette(s) /CPE 08/31/2022 0834 Local . 01 Pathologist provided ICD-10: D12.0 . 01 CPT . 066816 Specimen Comment: A courtesy copy of this report has been sent to [facility] Pathology Performed at: 01 [facility] [address] [place] [address], [place], [place] [id number] MD Jalil Zarco MD Phone: [phone]
[2022-08-30] MEDS: LACTATED RINGERS 1,000 ML 100 ML IV (07:31)
--- NOTE | 2022-08-30 07:47 | P.HP_ITS ---
History of Present Illness History of Present Illness Chief complaint: [facility] [place] [place] Narrative: Ms. Worrell is a patient known to me for a breast biopsy for atypical lobular hyperplasia. She presents today for a screening colonoscopy. She is no family history of colon cancer her last colonoscopy was about 10 years ago and nothing was found as far as she remembers. She has no concerning symptoms of bleeding diarrhea constipation. Patient History Medical History Advanced directives, counseling/discussion Anxiety Atypical lobular hyperplasia of right breast Chicken pox Depression Depression, recurrent Eczema Essential hypertension FH: breast cancer in first degree relative Fibroids (~2020) GERD without esophagitis HTN (hypertension) Impaired fasting glucose Measles Medicare annual wellness visit, initial Mixed hyperlipidemia Mumps PTSD (post-traumatic stress disorder) (~2000) Rosacea Skin cancer (~2014) Surgical History Anesthesia H/O bilateral breast reduction surgery H/O bilateral oophorectomy (~06/2021) Family & Social History Family History Mother Cancer Diabetes mellitus Hypertension Brother Parkinson's disease Grandmother Cancer Grandmother Cancer Family/Other History of kidney transplant Social History: household members spouse Tobacco & Substance use: Smoking Status Never smoker alcohol intake current alcohol intake frequency a few times a week Substance Use Type does not use Meds Home Medications and Allergies Home Medications Medication Instructions Recorded Confirmed Type lansoprazole 15 mg capsule,delayed 15 mg PO DAILY 02/01/22 08/30/22 History release rosuvastatin 10 mg tablet 10 mg PO DAILY #90 tabs 02/01/22 08/30/22 Rx atenolol 25 mg tablet 25 mg PO QDAY #90 tabs 07/09/22 08/30/22 Rx paroxetine HCl 10 mg tablet (Paxil) 10 mg PO Q DAY #90 tabs 07/09/22 08/30/22 Rx Allergies Allergy/AdvReac Type Severity Reaction Status Date / Time No Known Drug Allergies Allergy Verified 08/30/22 07:32 Exam Vital Signs (past 8 hours): - 08/30/22 07:21 Temperature 97.2 F L Pulse Rate 71 Respiratory Rate 16 Blood Pressure 143/87 H Pulse Oximetry 97 Oxygen Delivery Method Room Air Oxygen Delivery Method Room Air Const General: cooperative, healthy appearing and comfortable HENMT Head: normal to inspection Resp Effort & Inspection: normal respiratory effort and able to speak in complete sentences Cardio Pulses: radial pulses present GI Palpation: soft and No tender Assessment & Plan Assessment and plan (1) Colon cancer screening: Status: Acute Plan I discussed the risks benefits and alternatives of the screening colonoscopy the patient understands all of these including but not limited to perforation of the colon and an incomplete exam. She would like to proceed. Time Spent With Patient Critical Care time: I spent a total of [] minutes of critical care time on this patient's care today; this time is exclusive of procedural time.
--- NOTE | 2022-08-30 08:43 | SUR.PHASEI ---
Received to PACU after MAC. Report from ALIVIA Argueta and Dr Sánchez.
--- NOTE | 2022-08-30 08:52 | P.OP.COLON_ITS ---
Procedure & Clinicians Study performed: Colonoscopy and biopsy Same procedure as scheduled: Yes Surgeon: Luh Perez Procedure Notes Procedure in detail: Patient was taken to the endoscopy suite and placed in a left lateral decubitus position. A time-out was performed. Conscious sedation with the help of Dr. Dajuan hardy anesthesiologist was performed. Digital rectal exam was performed and there were no masses or strictures. The colonoscope was introduced into the anal canal and advanced through to the cecum. The cecal appendiceal orifice photographed. There were some sigmoid diverticula seen. Right on the edge of the the cecum around the folds that were near the ileocecal valve there were 3 small polyps. The 1st was biopsied with the forceps the 2nd was snared with a cold snare and the last 1 was again biopsied with the forceps. All 3 of these polyps were sent in the same specimen jar. There were no further polyps seen throughout the colon. The scope was retroflexed and a photograph was obtained. Prep was good [place] bowel prep 2. Patient tolerated the procedure well and went in good condition to the postoperative care unit. Findings: diverticulitis Specimen(s): other (Cecal colon polyps small x3) Impression: Depending on the pathology of these polyps the follow-up could be affected but likely follow up in about 5 years.
== END 2022-08-30 09:24 | disposition home or self-care (01) ==
PROVIDERS: PCP Internal Medicine; Referring Provider Surgery; Visit Provider Surgery
PROC: 0DJD8ZZ Inspection of Lower Intestinal Tract, Via Natural or Artificial Opening Endoscopic (ICD-10-PCS; CPT 45378; principal; 2022-08-30 07:45)
DX: Z12.11 Encounter for screening for malignant neoplasm of colon (principal); K57.30 Diverticulosis of large intestine without perforation or abscess without bleeding; D12.0 Benign neoplasm of cecum
CPT/HCPCS: 45385; 45380; J2250; J3010

== ENCOUNTER → 2022-11-04 11:50 | Outpatient (CLI) | payer MEDICARE, SELFPAY ==
--- NOTE | 2022-11-04 11:51 | DI.RAD.S_ITS ---
PROCEDURE: XR FACIAL BONES MIN 3V INDICATIONS: Trauma to face TECHNIQUE: 3 views of the facial bones were acquired. COMPARISON: None. FINDINGS: Sinuses: Visualized sinuses demonstrate no air-fluid levels or mucosal thickening. Bones: No fractures. No suspicious bony lesions. Orbital rims and zygomatic arches appear intact. Soft tissues: No suspicious soft tissue densities. IMPRESSION: Normal facial bone radiographs Approved by: Satya Dhillon M.D. on 11/04/2022 at 16:49
== END ==
PROVIDERS: PCP Internal Medicine; Referring Provider Student in an Organized Health Care Education/Training Program; Visit Provider Student in an Organized Health Care Education/Training Program
DX: S09.93XA Unspecified injury of face, initial encounter (principal); X58.XXXA Exposure to other specified factors, initial encounter
CPT/HCPCS: 70150

== ENCOUNTER 2023-01-14 13:34 | Emergency (ER) | payer MEDICARE, SELFPAY ==
[2023-01-14 13:39] VITALS: BP 186/92; PULSE 68; RESP 16; TEMP 36.3; O2SAT 98; BMI 27.4
--- NOTE | 2023-01-14 14:03 | ED.EYEPROB ---
HPI - Eye Problem <Rachel Tamayo PA-C - Last Filed: 01/14/23 18:55> General Chief complaint: Eye Problems Stated complaint: RT eye problem Time Seen by Provider: 01/14/23 13:44 Source: patient Mode of arrival: Ambulatory History of Present Illness HPI Narrative: 77-year-old female with past medical history hyperlipidemia, hypertension, depression presents to the ED with 1 day of right eye irritation. Patient states that her eye has been bothering her since she awoke this morning. Patient is not aware of any foreign body going into her eye. 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 Patient also suspected that she might be having an allergic reaction, therefore she took some allergy medicine this morning with no relief. Patient states that she is able to see out of the right eye and her vision in that eye is unchanged. Patient is in extreme discomfort due to the eye irritation. Patient was seen in the walk-in clinic earlier today, states that the numbing drops that the used did seem to provide temporary relief. Patient was sent to the ED for further evaluation. Related Data Home Medications Medication Instructions Recorded Confirmed lansoprazole 15 mg capsule,delayed 15 mg PO DAILY 02/01/22 01/14/23 release Previous Rx's Medication Instructions Recorded rosuvastatin 10 mg tablet 10 mg PO DAILY #90 tabs 02/01/22 atenolol 25 mg tablet 25 mg PO QDAY #90 tabs 07/09/22 paroxetine HCl 10 mg tablet (Paxil) 10 mg PO Q DAY #90 tabs 07/09/22 azelastine 137 mcg (0.1 %) nasal 2 spray intranasal BID 10 days #30 01/14/23 spray aerosol mL [id number] 3.5 2 drp EYE-RIGHT Q6H conjuntivitis 01/14/23 mg/mL-10,000 unit/mL-0.1% eye drops bacterial #5 mL Allergies Allergy/AdvReac Type Severity Reaction Status Date / Time No Known Drug Allergies Allergy Verified 01/14/23 12:11 Review of Systems <Rachel Tamayo PA-C - Last Filed: 01/14/23 18:55> Review of Systems ROS Unobtainable: All systems reviewed & are unremarkable except as noted in HPI and below Constitutional Constitutional: Denies chills, Denies fatigue, Denies fever(s), Denies frequent falls, Denies lethargy and Denies weakness Eyes Eyes: Denies change in vision, Denies eye discharge, Reports irritation and Denies loss of vision ENT Ears, Nose, Mouth, and Throat: Denies change in voice, Denies dizziness, Denies neck pain, Denies sore throat and Denies throat swelling Cardiovascular Cardiovascular: Denies chest pain, Denies irregular heart rhythm, Denies lightheadedness, Denies palpitations, Denies dyspnea, Denies dyspnea on exertion and Denies orthopnea Respiratory Respiratory: Denies cough, Denies dyspnea, Denies dyspnea on exertion and Denies wheezing Gastrointestinal Gastrointestinal: Denies abdominal pain, Denies change in bowel habits, Denies diarrhea, Denies nausea and Denies vomiting Genitourinary Genitourinary: Denies hematuria, Denies flank pain, Denies urinary incontinence and Denies urinary urgency Musculoskeletal Musculoskeletal: Denies back pain, Denies muscle weakness, Denies neck pain, Denies numbness and Denies tingling Integumentary/Breasts Skin/Breast: Denies pruritus, Denies erythema, Denies rash and Denies wounds Neurologic Neurologic: Denies behavioral changes, Denies confusion, Denies dizziness, Denies frequent falls, Denies loss of vision, Denies numbness, Denies tingling and Denies weakness Psychiatric Psychiatric: Denies anxiety, Denies behavioral changes, Denies confusion, Denies depression, Denies homicidal ideation and Denies suicidal ideation Endocrine Endocrine: Denies fatigue, Denies flushing and Denies palpitations Hematologic/Lymphatic Hematologic/Lymphatic: Denies easy bruising Allergic/Immunologic Allergic/Immunologic: Denies urticaria, Denies throat swelling and Denies wheezing Patient History <Rachel Tamayo PA-C - Last Filed: 01/14/23 18:55> Medical History Advanced directives, counseling/discussion Anxiety Atypical lobular hyperplasia of right breast Chicken pox Depression Depression, recurrent Eczema Essential hypertension FH: breast cancer in first degree relative Fibroids (~2020) GERD without esophagitis HTN (hypertension) Impaired fasting glucose Measles Medicare annual wellness visit, initial Mixed hyperlipidemia Mumps PTSD (post-traumatic stress disorder) (~2000) Rosacea Skin cancer (~2014) Surgical History Anesthesia H/O bilateral breast reduction surgery H/O bilateral oophorectomy (~06/2021) Family History Mother Cancer Diabetes mellitus Hypertension Brother Parkinson's disease Grandmother Cancer Grandmother Cancer Family/Other History of kidney transplant Social History household members: spouse Smoking Status: Never smoker alcohol intake: current Smoking Status: Never smoker alcohol intake frequency: a few times a week Substance Use Type: does not use Exam <Rachel Tamayo PA-C - Last Filed: 01/14/23 18:55> Narrative Exam Narrative: Const General:?cooperative, healthy appearing and comfortable [facility] Head:?normal to inspection Ears:?hearing grossly normal bilaterally Nose:?external nose normal Face and sinus:?normal facial exam and sinuses nontender Mouth:?oral mucosae normal Throat:?posterior oropharynx normal Eyes General:? Conjunctival abrasion noted on fluorescein exam in the right eye. No corneal abrasion. No gross foreign objects noted on exam during eyelid eversion. Vision grossly normal. No pain with extraocular movements. Neck Neck:?normal visual inspection and no lymphadenopathy noted Resp Effort & Inspection:?normal respiratory effort Auscultation:?clear to auscultation bilaterally Cardio Rate:?regular rate Rhythm:?regular rhythm Neuro General:?patient alert, patient awake and patient oriented x3 Initial Vital Signs Initial Vital Signs: Vital Signs Temperature 97.3 F L 01/14/23 13:39 Pulse Rate 68 01/14/23 13:39 Respiratory Rate 16 01/14/23 13:39 Blood Pressure 186/92 H 01/14/23 13:39 Pulse Oximetry 98 01/14/23 13:39 Oxygen Delivery Method Room Air 01/14/23 13:39 <Swathi Owen DO - Last Filed: 01/17/23 07:50> Initial Vital Signs Initial Vital Signs: Vital Signs Temperature 97.3 F L 01/14/23 13:39 Pulse Rate 68 01/14/23 13:39 Respiratory Rate 16 01/14/23 13:39 Blood Pressure 186/92 H 01/14/23 13:39 Pulse Oximetry 98 01/14/23 13:39 Oxygen Delivery Method Room Air 01/14/23 13:39 Course <Rachel Tamayo PA-C - Last Filed: 01/14/23 18:55> Orders Ordered: Discontinued Medications Fluorescein Sodium (Fluorescein 1 Mg Strip) 1 mg EYE-RIGHT NOW ONE Stop: 01/14/23 13:46 Last Admin: 01/14/23 14:09 Dose: 1 mg Documented By: BS Proparacaine HCl (Proparacaine 0.5% Ophth Graciela) 1 drops EYE-RIGHT NOW ONE Stop: 01/14/23 13:45 Last Admin: 01/14/23 14:09 Dose: 1 drops Documented By: BS Vital Signs Vital signs: Vital Signs - 8 hr 01/14/23 13:39 01/14/23 16:17 Temperature 97.3 F L Pulse Rate 68 68 Respiratory Rate 16 16 Blood Pressure 186/92 H 125/63 Pulse Oximetry 98 99 Oxygen Delivery Method Room Air Room Air <Swathi Owen DO - Last Filed: 01/17/23 07:50> Orders Ordered: Discontinued Medications Fluorescein Sodium (Fluorescein 1 Mg Strip) 1 mg EYE-RIGHT NOW ONE Stop: 01/14/23 13:46 Last Admin: 01/14/23 14:09 Dose: 1 mg Documented By: BS Proparacaine HCl (Proparacaine 0.5% Ophth Graciela) 1 drops EYE-RIGHT NOW ONE Stop: 01/14/23 13:45 Last Admin: 01/14/23 14:09 Dose: 1 drops Documented By: HORACIO Vital Signs Vital signs: Vital Signs - 8 hr 01/14/23 13:39 01/14/23 16:17 Temperature 97.3 F L Pulse Rate 68 68 Respiratory Rate 16 16 Blood Pressure 186/92 H 125/63 Pulse Oximetry 98 99 Oxygen Delivery Method Room Air Room Air MDM - Eye Problem <Rachel Tamayo PA-C - Last Filed: 01/14/23 18:55> MDM Narrative Medical decision making narrative: 77-year-old female with past medical history hyperlipidemia, hypertension, depression presents to the ED with 1 day of right eye irritation. Concern for corneal abrasion versus conjunctival abrasion versus other. Fluorescein exam shows some conjunctival abrasion to the right eye. No corneal abrasion visualized. No gross foreign body identified on exam. Patient's symptoms improved with proparacaine. Patient discharged home with prescription for Toradol eyedrops. Patient was also given proparacaine to take home to use for the next 24-48 hours. Recommend patient continue the and topical antibiotic drops that was prescribed at the walk-in clinic. Recommend follow-up with ophthalmology. ED return precautions were discussed with patient. Patient verbalized understanding. Medical records reviewed: Yes Discharge Plan Departure Patient Disposition: Home Clinical Impression: Conjunctival abrasion Instructions: DI for Corneal Abrasion Activity Restrictions/Additional Instructions: You were evaluated in the ED for right eye irritation. It appears that you have a conjunctival abrasion, which is a scratched to the white portion of your eye. This will heal itself in 2-3 days. You are being prescribed ketorolac eyedrops for pain control -please apply those as written on the presscription. You may also apply the antibiotic eye drops that you were prescribed from the walk-in clinic. You may also apply the proparacaine eyedrops if your pain is not sufficiently controlled by the ketorolac eyedrops -you may apply 1-2 drops every 30 minutes for 24-48 hours. Do not apply for longer than 48 hours. Prescriptions: No Action neomycin-polymyxin B-dexameth 3.5mg/mL-10,000 unit/mL-0.1 % drops,suspension 2 drp EYE-RIGHT Q6H Qty: 5 0RF azelastine 137 mcg (0.1 %) aerosol,spray 2 spray intranasal BID 10 Days Qty: 30 0RF Rx Instructions: administer into each nostril lansoprazole 15 mg capsule,delayed release(DR/EC) 15 mg PO DAILY rosuvastatin 10 mg tablet 10 mg PO DAILY Qty: 90 3RF atenolol 25 mg tablet 25 mg PO QDAY Qty: 90 3RF paroxetine HCl [Paxil] 10 mg tablet 10 mg PO Q DAY Qty: 90 3RF Referrals: Zeb Casanova MD [Primary Care Provider] - Stand Alone Forms: Patient Portal/API <Swathi Owen DO - Last Filed: 01/17/23 07:50> Cosign ED Attending Rodriguezature Attestation: I was immediately available in the department for consultation. Documentation has been reviewed.
[2023-01-14] MEDS: PROPARACAINE 0.5% OPHTH SOL 1 DROPS EYE-RIGHT (14:09)
[2023-01-14] MEDS: FLUORESCEIN 1 MG STRIP EYE-RIGHT (14:09)
[2023-01-14 16:17] VITALS: BP 125/63; PULSE 68; RESP 16; O2SAT 99
== END 2023-01-14 15:07 | disposition home or self-care (01) ==
PROVIDERS: Emergency Provider Student in an Organized Health Care Education/Training Program; PCP Internal Medicine
DX: S05.01XA Injury of conjunctiva and corneal abrasion without foreign body, right eye, initial encounter (principal)
CPT/HCPCS: 99282

== ENCOUNTER → 2023-09-15 11:24 | Outpatient (CLI) | payer MEDICARE, SELFPAY ==
[2023-09-15 12:19] LABS: Hemoglobin A1C% w Est Avg Glu 5.2 % (4.0-6.0)
[2023-09-15 12:27] LABS: Aspartate Aminotransferase 44 IU/L (14-36); BUN Creatinine Ratio 18.9 (6-22); Blood Urea Nitrogen 14 mg/dL (7-17); Calcium 9.3 mg/dL (8.4-10.2); Carbon Dioxide 28 mmol/L (22-32); Chloride 108 mmol/L (98-107); Cholesterol 154 mg/dL (140-199); Estimated Glomerular Filt Rate > 60 mL/min (>60); Glucose 71 mg/dL (80-110); HDL Cholesterol 67 mg/dL (40-60); HEMOLYSIS 17 (0-50); LDL Cholesterol Calculated 75 mg/dL (<100); Sodium 139 mmol/L (137-145); Triglycerides 59 mg/dL (35-150)
== END ==
PROVIDERS: PCP Internal Medicine; Referring Provider Internal Medicine; Visit Provider Internal Medicine
DX: R73.01 Impaired fasting glucose (principal); I10 Essential (primary) hypertension; E78.2 Mixed hyperlipidemia
CPT/HCPCS: 36415; 80048; 80061; 83036; 84450

== ENCOUNTER → 2024-10-27 15:33 | Outpatient (CLI) | payer MEDICARE, SELFPAY ==
[2024-10-27 17:14] LABS: Aspartate Aminotransferase 36 IU/L (14-36); BUN Creatinine Ratio 21.5 (6-22); Blood Urea Nitrogen 20 mg/dL (7-17); Calcium 9.7 mg/dL (8.4-10.2); Carbon Dioxide 28 mmol/L (22-32); Chloride 105 mmol/L (98-107); Cholesterol 205 mg/dL (140-199); Estimated Glomerular Filt Rate > 60 mL/min (>60); Glucose 87 mg/dL (70-99); HDL Cholesterol 74 mg/dL (40-60); HEMOLYSIS < 15 (0-50); LDL Cholesterol Calculated 111 mg/dL (<100); Potassium 4.8 mmol/L (3.4-5.1); Sodium 140 mmol/L (137-145); Triglycerides 99 mg/dL (35-150)
== END ==
PROVIDERS: PCP Internal Medicine; Referring Provider Internal Medicine; Visit Provider Internal Medicine
DX: R73.01 Impaired fasting glucose (principal); I10 Essential (primary) hypertension; E78.2 Mixed hyperlipidemia
CPT/HCPCS: 36415; 80048; 80061; 83036; 84450

== ENCOUNTER → 2025-01-14 16:14 | Outpatient (CLI) | payer MEDICARE, SELFPAY | PROVIDERS: PCP Internal Medicine; Visit Provider Family Medicine | DX: R30.0 Dysuria (principal) | CPT/HCPCS: 87077; 87086; 87186 ==

== ENCOUNTER 2025-06-22 04:48 | Emergency (ER) | payer MEDICARE, SELFPAY ==
[2025-06-22 05:20] VITALS: BP 152/83; PULSE 76; RESP 16; TEMP 36.3; O2SAT 98; BMI 27.4
--- NOTE | 2025-06-22 05:24 | PC.NURSE ---
Removed nasal clamp that medics placed, No active bleeding seen at this time.
--- NOTE | 2025-06-22 05:29 | ED.EPISTAXIS ---
HPI - Epistaxis General Chief complaint: Nasal Problem Stated complaint: nose bleed Time Seen by Provider: 06/22/25 04:52 Source: patient and EMS Mode of arrival: EMS History of Present Illness HPI Narrative: Patient is a 71-year-old female brought in by EMS for epistaxis. Past medical history noncontributory, patient is not on any anticoagulation. Patient states that she had spontaneous epistaxis that soaked through 2 rags. She had postnasal drip swallowing large amounts of blood which prompted her to present to the ER. She denies any chest pain, dyspnea, diaphoresis. No lightheadedness, presyncope, no syncopal events. Related Data Home Medications ?Medication ?Instructions ?Recorded ?Confirmed esomeprazole magnesium 20 mg 20 mg PO DAILY 10/05/24 01/19/25 capsule,delayed release (Nexium) Previous Rx's ?Medication ?Instructions ?Recorded atenolol 25 mg tablet 25 mg PO QDAY #90 tabs 11/08/24 epinephrine 0.3 mg/0.3 mL 0.3 mg (0.3 mL) IM Q5-15M PRN 01/19/25 injection, auto-injector (EpiPen anaphylaxis #2 ea 2-Edwin) triamcinolone acetonide 0.5 % 1 applic topical BID #15 grams 01/19/25 topical cream paroxetine HCl 10 mg tablet (Paxil) 10 mg PO Q DAY #90 tabs 05/24/25 Allergies Allergy/AdvReac Type Severity Reaction Status Date / Time No Known Drug Allergies Allergy Verified 06/22/25 05:20 Review of Systems Review of Systems Narrative: See HPI. Patient History Medical History Allergic dermatitis History of colonic polyps Atypical lobular hyperplasia of right breast Depression, recurrent Impaired fasting glucose GERD without esophagitis Mixed hyperlipidemia Essential hypertension Rosacea Eczema PTSD (post-traumatic stress disorder) (~2000) Depression Mumps Measles Chicken pox Fibroids (~2020) Skin cancer (~2014) Anxiety HTN (hypertension) FH: breast cancer in first degree relative Surgical History Anesthesia H/O bilateral oophorectomy (~06/2021) H/O bilateral breast reduction surgery Family History Mother Cancer Diabetes mellitus Hypertension Brother Parkinson's disease Grandmother Cancer Grandmother Cancer Family/Other History of kidney transplant Social History household members: spouse Smoking Status: Never smoker alcohol intake: current Smoking Status: Never smoker alcohol intake frequency: a few times a week Exam Narrative Exam Narrative: Vitals: Afebrile, hypertensive, no tachycardia or any other abnormal vitals. Gen: Well-developed, well-nourished, no acute distress Nose: Mild dried blood noted in left nare Card: Regular, no murmurs, rubs, gallops Pulm: Regular work of breathing, clear to auscultation bilaterally Ext: No peripheral edema in bilateral extremities Neuro: Alert and oriented x4, moving all 4 extremities spontaneously, cranial nerves grossly intact Psych: Appropriate Initial Vital Signs Initial Vital Signs: Vital Signs Temperature 97.3 F L 06/22/25 05:20 Pulse Rate 76 06/22/25 05:20 Respiratory Rate 16 06/22/25 05:20 Blood Pressure 152/83 H 06/22/25 05:20 Pulse Oximetry 98 06/22/25 05:20 Oxygen Delivery Method Room Air 06/22/25 05:20 Course Vital Signs Vital signs: Vital Signs - 8 hr 06/22/25 05:20 Temperature 97.3 F L Pulse Rate 76 Respiratory Rate 16 Blood Pressure 152/83 H Pulse Oximetry 98 Oxygen Delivery Method Room Air MDM - Epistaxis MDM Narrative Medical decision making narrative: Patient is a 79-year-old female with no significant contributory past medical history who presents with epistaxis. Differential diagnosis: Anterior versus posterior epistaxis, nasal polyp, nasal mass, coagulopathy, other. Labs: None. Imaging: None. EKG: None. Consults: None. ER course: On initial evaluation the patient in ER, she was hemostatic without any complaints. Given spontaneous resolution of her epistaxis, informed patient that no further workup of her manage in warranted. I informed patient that if she had any heavy nose blowing but she may dislodge the clot and bleeding may resume. Recommend using similar hemostatic technique with pressure and informed patient of concerning signs and symptoms that would necessitate re-evaluation in the ER by a physician. Patient was discharged to home with her in stable condition. Discharge Plan Departure Patient Disposition: Home Clinical Impression: Epistaxis Activity Restrictions/Additional Instructions: You were seen in the emergency department for a nosebleed today. Please read the handout on nosebleed. --You may experience another nosebleed if the clot is dislodged or your blowing your nose aggressively. --If this happens place then nose clamp back on your no.se --Return to the ER if you develop chest pain, shortness of breath, episodes of fainting or near fainting or any other concerns. --Recheck your blood pressure as it was elevated in the ER today. Hannah Bhatti! - Dr Do Prescriptions: No Action atenolol 25 mg tablet 25 mg PO QDAY Qty: 90 3RF paroxetine HCl [Paxil] 10 mg tablet 10 mg PO Q DAY Qty: 90 3RF esomeprazole magnesium [Nexium] 20 mg capsule,delayed release(DR/EC) 20 mg PO DAILY triamcinolone acetonide 0.5 % cream 1 applic topical BID Qty: 15 1RF Rx Instructions: Applied to affected areas b.i.d. epinephrine [EpiPen 2-Edwin] 0.3 mg/0.3 mL auto-injector 0.3 mg IM Q5-15M PRN (Reason: anaphylaxis) Qty: 2 1RF Rx Instructions: do not exceed 3 doses per episode Referrals: Zeb Casanova MD [Primary Care Provider, Internal Medicine] Stand Alone Forms: Patient Portal/API
== END 2025-06-22 05:47 | disposition home or self-care (01) ==
PROVIDERS: Emergency Provider Student in an Organized Health Care Education/Training Program; PCP Internal Medicine
DX: R04.0 Epistaxis (principal)
CPT/HCPCS: 99281